=== PATIENT | male | born 1945 | race Caucasian/White ===

== ENCOUNTER 2025-03-08 09:47 | Outpatient (CLI) | payer OTHER, SELFPAY ==
--- NOTE | 2025-03-08 12:02 | P.ANES_ITS ---
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
--- NOTE | 2025-03-08 12:02 | W.ANESCHARGE ---
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
--- NOTE | 2025-03-08 12:46 | P.ANES_ITS ---
Anesthesia Charges Start Date/Time Anesthesia Start Date: 03/08/25 Anesthesia Start Time: 11:39 Stop Date/Time Anesthesia Stop Date: 03/08/25 Anesthesia Stop Time: 12:04 Summary Extremes of Age - Over 70 or under 1: MDA Coding CPT Codes CPT Codes: ANES LWR INTST NDSC NOS - [id number] ([id number]) QK - NETWORK TECHNOLOGY INSTRUCTOR 2-4 CNCRNT ANES PROC, QX - SIDE LASTER SVC W/ MD MED DIRECTION, P3 - PATIENT W/SEVERE SYS DISEASE Additional Codes: Summary - Extremes of Age - Over 70 or under 1: MDA ([id number])
== END 2025-03-08 09:48 | disposition home or self-care (01) ==
PROVIDERS: PCP Family Medicine; Visit Provider Internal Medicine Gastroenterology
DX: Z12.11 Encounter for screening for malignant neoplasm of colon (principal); Z86.0100 Personal history of colon polyps, unspecified; D12.2 Benign neoplasm of ascending colon
CPT/HCPCS: 00811; 45380; 88305; 99100; J2704